=== PATIENT | male | born 2000 | race Hispanic/Latino ===

== ENCOUNTER 2018-02-28 07:17 | Emergency (ER) | payer OTHER, SELFPAY ==
[2018-02-28] MEDS ORDERED: IBUPROFEN 400 MG TAB ONE (07:37)
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
== END 2018-02-28 08:18 | disposition home or self-care (01) ==
LOC: ER 07:17
DX: S16.1XXA Strain of muscle, fascia and tendon at neck level, initial encounter (principal); V49.40XA Driver injured in collision with unspecified motor vehicles in traffic accident, initial encounter; Z72.0 Tobacco use
CPT/HCPCS: 72040; 99284